=== PATIENT | female | born 1975 | race African-American/Black ===

== ENCOUNTER 2016-10-21 09:08 | Day surgery (SDC) | payer BC ==
[~2016-10-21] VITALS: Ht 157.5 cm; Wt 133.4 kg
[~2016-10-21 09:08] MED LIST: AMLO5TAB2 PO; FERR-26 PO; HYDROmorphone 2 MG/ML VIAL IV PRN; IV RINGERS,LACTATED 1000ML 1,000 ML IV SCH; LIDOCAINE 1% 1 ML SYRINGE. ID PRN; MEPERIDINE PF 25 MG/ML VIAL. IV PRN; MIDAZOLAM HCL/PF 2 MG/2 ML VIAL. IV PRN; MORPHINE SULFATE 4 MG/ML DISP.SYRIN. IV PRN; PROCHLORPERAZINE 10 MG/2 ML VIAL. IV PRN; diphenhydrAMINE 50 MG/ML VIAL IV PRN; fentaNYL PF VIAL 100 MCG/2 ML VIAL IV PRN
[2016-10-21 09:45] LABS: NEG OBC UR NEG; POS OBC UR POS
[2016-10-21] MEDS ORDERED: fentaNYL PF VIAL 100 MCG/2 ML VIAL ONE (10:37)
[2016-10-21] MEDS ORDERED: MIDAZOLAM HCL/PF 2 MG/2 ML VIAL. ONE (10:37)
[2016-10-21] MEDS ORDERED: ONDANSETRON PF 4 MG/2 ML VIAL. ONE (10:38)
[2016-10-21] MEDS ORDERED: SEVOFLURANE 31 TO 60 MINUTES. IH ONE (10:38)
[2016-10-21] MEDS ORDERED: LIDOCAINE 2% PF Vial for OR 5 ML VIAL. ONE (10:38)
[2016-10-21] MEDS ORDERED: PROPOFOL 20 ML IV ONE (10:38)
[2016-10-21] MEDS ORDERED: DEXAMETHASONE SOD PHOS 20 MG/5 ML VIAL. ONE (10:38)
[2016-10-21] MEDS ORDERED: FAMOTIDINE 20 MG/2 ML VIAL ONE (10:40)
--- NOTE | 2016-10-21 11:51 | PDOC ---
BRIEF OPERATIVE NOTE Pre-Op Diagnosis Menorrhagia Post-Op Diagnosis Same Procedure Performed Endometrial Ablation [facility] Surgeon Dr. Holland Anesthesia Type: General Blood Loss 10 ml Specimens Obtained none Findings 12 wk size uterus with thickened endometrial lining Complications none Additional Remarks Pt. LUIZ Suarez Jr, MD Oct 21, 2016 11:51
--- NOTE | 2016-10-21 11:52 | DISCH ---
DISCHARGE INSTRUCTIONS Condition on Discharge Condition on Discharge: Stable Activity After Discharge Activity Instructions for Disc: Activity as tolerated Lifting Instructions after Dis: No heavy lifting Driving Instructions after Dis: Do not drive today Diet after Discharge Diet after Discharge: Regular Contacting the DRPatrick after DC Call your doctor for: Concerns you may have Follow-Up Follow up with: Dr. Holland in 1 wk. LUIZ HOLLAND Jr, MD Oct 21, 2016 11:52
[2016-10-21] MEDS: fentaNYL PF VIAL 100 MCG/2 ML VIAL IV PRN ×3 (12:12→12:55)
[2016-10-21] MEDS ORDERED: oxyCODONE/APAP 5/325 1 TAB TABLET PO PRN (13:30)
[2016-10-21 14:10] VITALS: BP 141/84
--- NOTE | 2016-10-21 14:11 | OP ---
DATE OF SURGERY: 10/21/2016 PREOPERATIVE DIAGNOSIS: Menorrhagia. POSTOPERATIVE DIAGNOSIS: Menorrhagia. PROCEDURE: Endometrial ablation via HTA system. SURGEON: Luiz Holland M.D. ANESTHESIA: GETA. ESTIMATED BLOOD LOSS: 10 mL. COMPLICATIONS: None. FINDINGS: A 12-week size uterus with thickened endometrial lining. SUMMARY: A 41-year-old patient, unresponsive to medical treatment for menorrhagia. The patient was counseled on endometrial ablation, risks, benefits and expectations and voiced a clear understanding to proceed. DESCRIPTION OF PROCEDURE: The patient was taken to surgery suite and placed in dorsolithotomy position. She was prepped with Betadine solution and draped in a sterile fashion. After adequate anesthesia, weighted speculum and curved Tremaine placed vaginally and anterior lip of the cervix grasped with single tooth tenaculum. Cervix was dilated up to size 8 using Hegar dilators. The HTA hysteroscope was placed. The endometrium was homogenous with thickened lining and endometrial ablation took place over 10 minutes with a T-max of 90 degree Celsius. The pinkish tissue transitioned to whitish tissue homogeneously. The scope was removed. The single tooth tenaculum caused mild laceration of the anterior lip of the cervix, which was repaired with 2-0 Vicryl suture in a [id number] manner. It was then hemostatic. The weighted speculum was removed. The patient tolerated the procedure well and was taken to recovery in stable condition. Sponge and needle counts correct x 3. LUIZ HOLLAND MD DR: LANCE/deann JOB#: [id number] / [id number]
== END 2016-10-21 14:19 | disposition home or self-care (01) ==
LOC: SURG 09:08
PROVIDERS: ATTEND Obstetrics & Gynecology
DX: N92.0 Excessive and frequent menstruation with regular cycle (principal); I10 Essential (primary) hypertension; E11.9 Type 2 diabetes mellitus without complications; D64.9 Anemia, unspecified; Z87.39 Personal history of other diseases of the musculoskeletal system and connective tissue
CPT/HCPCS: 58563; 81025; 82962; J0780; J1100; J2250; J2405; J2704; J3010; S0028

== ENCOUNTER → 2018-02-28 | Outpatient (CLI) | payer OTHER ==
[~2018-02-28] MED LIST changes: -AMLO5TAB2 PO; +AMLO5TAB7 PO; -FERR-26 PO; +FERR325T14 PO; -HYDROmorphone 2 MG/ML VIAL IV PRN; -IV RINGERS,LACTATED 1000ML 1,000 ML IV SCH; -LIDOCAINE 1% 1 ML SYRINGE. ID PRN; -MEPERIDINE PF 25 MG/ML VIAL. IV PRN; -MIDAZOLAM HCL/PF 2 MG/2 ML VIAL. IV PRN; -MORPHINE SULFATE 4 MG/ML DISP.SYRIN. IV PRN; -PROCHLORPERAZINE 10 MG/2 ML VIAL. IV PRN; -diphenhydrAMINE 50 MG/ML VIAL IV PRN; -fentaNYL PF VIAL 100 MCG/2 ML VIAL IV PRN
--- NOTE | 2018-02-28 17:17 | RAD ---
Pelvic ultrasound, 02/28/2018: HISTORY: Amenorrhea Transabdominal and transvaginal scans were obtained. The uterus is mildly enlarged measuring 12.9 x 5.6 x 4.7 cm. This is likely related to the multiple previous pregnancies. A normal central uterine echo is evident measuring approximately 3 mm in thickness. No uterine mass is seen. The ovaries are of normal size. There is a 2.8 cm simple cyst in the left ovary. The adnexal structures are otherwise unremarkable. No free fluid is evident in the pelvis. IMPRESSION: 1. Mild uterine enlargement. 2. Small left ovarian cyst. Electronically signed by: Oneil Pope MD (02/28/2018 5:15 PM) [facility]
== END | disposition home or self-care (01) ==
LOC: US 15:34
PROVIDERS: ATTEND Physician Assistant Surgical
DX: N83.292 Other ovarian cyst, left side (principal); N85.2 Hypertrophy of uterus
CPT/HCPCS: 76830; 76856

== ENCOUNTER 2021-07-15 02:35 | Observation (INO) | payer OTHER ==
[~2021-07-15 02:35] MED LIST changes: +AMLO-186 PO; -AMLO5TAB7 PO
[2021-07-15] MEDS ORDERED: IV RINGERS,LACTATED 1000ML 1,000 ML IV SCH (03:00)
[2021-07-15] MEDS ORDERED: 0.9 % SODIUM CHLORIDE 10 ML DISP.SYRIN. IV PRN (03:00)
[2021-07-15] MEDS ORDERED: BETAMET ACET&NA PHOS 30 MG/5 ML VIAL. IM ONE (03:30)
[2021-07-15 03:40] LABS: BASO % 0 % (0-3); EOS # 0.1 x10^3/uL (0.0-0.7); EOS % 2 % (0-3); HEMATOCRIT 32.2 % (36.0-47.0); HEMOGLOBIN 10.8 g/dL (12.0-15.5); LYMPH % 28 % (24-48); MEAN CORPUSCULAR HEMOGLOBIN 33 pg (25-35); MEAN CORPUSCULAR HGB CONC 34 g/dL (31-37); MEAN CORPUSCULAR VOLUME 98 fL (79-100); MONO # 0.3 x10^3/uL (0.0-1.1); MONO % 5 % (0-9); NEUT # 4.5 x10^3/uL (1.8-7.7); NEUT % 65 % (31-73); PLATELET COUNT 231 x10^3/uL (140-400); RED BLOOD COUNT 3.28 x10^6/uL (3.50-5.40); RED CELL DISTRIBUTION WIDTH 13.5 % (11.5-14.5); WHITE BLOOD COUNT 6.9 x10^3/uL (4.0-11.0)
--- NOTE | 2021-07-15 03:50 | RAD ---
EXAM: US OB Limited CLINICAL HISTORY: vaginal bleeding. COMPARISON: None. TECHNIQUE: Limited transabdominal ultrasound of the uterus was performed. FINDINGS: NUMBER: Single POSITION: cephalic PLACENTA: Location: Posterior wall Placentation: Complex fluid surrounding surrounding placenta. Placenta grade: 2 ANATOMY: HEART RATE: 139 bpm Current measurements are: BPD -7.0 cm = 28 weeks and 2 days HC -25.4 cm = 27 weeks and 4 days AC - 22.1 cm = 26 weeks and 4 days FL - 5.0 cm = 27 weeks and 0 days HC/AC ratio: 1.1 MATERNAL ANATOMY UTERUS: No abnormalities seen. OVARIES/ADNEXAE: Not interrogated CUL-DE-SAC: No fluid. HISTORICAL DATES Last menstrual period: 01/03/2021 CALCULATED DATES ADA (LMP): 10/10/2021 EGA (US): 27 weeks and 3 days ADA (US): 10/11/2021 IMPRESSION: 1. Single live intrauterine with estimated gestational age is 27 weeks and 3 days. 2. Posterior placenta. Large amount of complex fluid surrounding placenta, suspicious for placenta ab ruption. FOR INTERNAL CODING PURPOSES Critical result: Findings discussed with Bogdan at 07/15/2021 3:45 AM. RESULT CODE: (C) Electronically signed by: Nathaniel Darby MD (07/15/2021 3:48 AM) [facility]
[2021-07-15 03:54] LABS: ALBUMIN 2.8 g/dL (3.4-5.0); ALBUMIN/GLOBULIN RATIO 0.7 (1.0-1.7); CALCIUM 9.3 mg/dL (8.5-10.1); CREATININE 0.9 mg/dL (0.6-1.0); GFR 82.3; TOTAL BILIRUBIN 0.3 mg/dL (0.2-1.0); URIC ACID 4.1 mg/dL (2.6-6.0)
[2021-07-15] MEDS ORDERED: MAGNESIUM SULFATE 4GM 100 ML IV ONE (04:00)
[2021-07-15] MEDS ORDERED: MAGNESIUM SULFATE 2GM 50 ML IV ONE (04:00)
[2021-07-15] MEDS ORDERED: MAGNESIUM SULFATE 20GM 500 ML IV SCH (04:00)
--- NOTE | 2021-07-15 04:22 | PDOC1 ---
[facility] H&P Date of Admission: Date of Admission: Jul 15, 2021 at 02:35 History of Present Illness: EDC: 10/10/21 LMP: 01/03/21 45y @ 27.4 by L=8 who presented to L&D with VB. The pt woke up this am with abd pain around 1 am. She felt that she had to void and when she looked she realized it was blood. Since that time she has been having constant gas pain. She arrived to L&D at 0236. When she arrived an u/s was ordered by the Patient Coordinator Front Desk. The u/s revealed a suspected abruption. I was called at 0316 for eval and tx. The pt is followed by PETER ALCANTARA for AMA, DM, and cHTN. She states that she was taken off her HTN meds when she was found to have a positive test. She is on Metformin for her DM. She was last seen 06/30/21. After reviewing her FHT and u/s, the baby appear stable for transfer. The pt was informed that it appeared that she may have an abruption, but would benefit from transfer due to her early gestation. Explained that if the FHT became concerning we would have to move toward delivery prior to transfer. PMH: cHTN, DM PSH: Gastric bypass, Endometrial ablation Meds: ASA, Metformin All: Codiene OBHx: TSVD x 3, SAB x 1 SH: no tob, no EtOH FH: HTN, DM Medications: Meds: Current Medications Medications (Trade) Dose Ordered Sig/Kit Route PRN Reason Start Time Stop Time Status Last Admin Dose Admin Ringer's Solution 1,000 ml @ 150 mls/hr [id number] IV 07/15/21 03:00 07/15/21 03:15 Betamethasone Sodium Phosphate (Celestone Soluspan) 12 mg 1X ONCE IM 07/15/21 03:30 07/15/21 03:31 DC 07/15/21 03:38 Allergies: Coded Allergies: No Known Drug Allergies (Unverified , 10/21/16) Physical Exam: PE: GENERAL: No apparent distress. Alert and oriented. HEENT: Head normocephalic, atraumatic. NECK: Supple LUNGS: Clear to auscultation. HEART: RRR, S1, S2 present, pulses intact ABDOMEN: Soft, positive bowel sounds. EXTREMITIES: No cyanosis or edema. NEUROLOGIC: Normal speech, normal tone PSYCHIATRIC: Normal affect, normal mood. SKIN: No ulceration. FHT: 150s no acels/no decels/min-modLTV [place]: quiet SVE: Ft/Th/H Labs: Laboratory Tests Test 07/15/21 03:30 White Blood Count 6.9 x10^3/uL (4.0-11.0) Red Blood Count 3.28 x10^6/uL (3.50-5.40) L Hemoglobin 10.8 g/dL (12.0-15.5) L Hematocrit 32.2 % (36.0-47.0) L Mean Corpuscular Volume 98 fL (79-100) Mean Corpuscular Hemoglobin 33 pg (25-35) Mean Corpuscular Hemoglobin Concent 34 g/dL (31-37) Red Cell Distribution Width 13.5 % (11.5-14.5) Platelet Count 231 x10^3/uL (140-400) Neutrophils (%) (Auto) 65 % (31-73) Lymphocytes (%) (Auto) 28 % (24-48) Monocytes (%) (Auto) 5 % (0-9) Eosinophils (%) (Auto) 2 % (0-3) Basophils (%) (Auto) 0 % (0-3) Neutrophils # (Auto) 4.5 x10^3/uL (1.8-7.7) Lymphocytes # (Auto) 2.0 x10^3/uL (1.0-4.8) Monocytes # (Auto) 0.3 x10^3/uL (0.0-1.1) Eosinophils # (Auto) 0.1 x10^3/uL (0.0-0.7) Basophils # (Auto) 0.0 x10^3/uL (0.0-0.2) Sodium Level 135 mmol/L (136-145) L Potassium Level 4.0 mmol/L (3.5-5.1) Chloride Level 102 mmol/L (98-107) Carbon Dioxide Level 20 mmol/L (21-32) L Anion Gap 13 (6-14) Blood Urea Nitrogen 12 mg/dL (7-20) Creatinine 0.9 mg/dL (0.6-1.0) Estimated GFR (Cockcroft-Gault) 82.3 BUN/Creatinine Ratio 13 (6-20) Glucose Level 83 mg/dL (70-99) Uric Acid 4.1 mg/dL (2.6-6.0) Calcium Level 9.3 mg/dL (8.5-10.1) Total Bilirubin 0.3 mg/dL (0.2-1.0) Aspartate Amino Transferase (AST) 11 U/L (15-37) L Alanine Aminotransferase (ALT) 19 U/L (14-59) Alkaline Phosphatase 55 U/L (46-116) Lactate Dehydrogenase 164 U/L (81-234) Total Protein 7.0 g/dL (6.4-8.2) Albumin 2.8 g/dL (3.4-5.0) L Albumin/Globulin Ratio 0.7 (1.0-1.7) L Laboratory Tests 07/15/21 03:30 Laboratory Tests 07/15/21 03:30 Laboratory Tests 07/15/21 03:30 Assessment & Plan: A/P 45y @ 27.4 by L=8 1.) Concerns of abruption pt with constant abd pain since 0100. U/s with large amt of blood surrounding placenta. FHT reassuring for gestational age. Bleeding moderate on exam. Based FHT, exam, and gestational age pt would benefit from transfer. Discussed case with Dr. Massey at who is willing to except transfer. 2.) cHTN BP mild, on no meds throughout 3.) DM on Metformin 4.) AMA on ASA 5.) Gastric bypass 6.) Endometrial ablation 2013, first since procedure 7.) Fetus reassuring for gestational age, BMTZ @ 0338, started on Mag for neuroprotection 8.) GBS unk BELLE GOMEZ MD Jul 15, 2021 04:22
== END 2021-07-15 04:55 | disposition home or self-care (01) ==
LOC: 3 SO LND 02:35
PROVIDERS: ADMIT Obstetrics & Gynecology; ATTEND Obstetrics & Gynecology
DX: O46.92 Antepartum hemorrhage, unspecified, second trimester (principal); O24.410 Gestational diabetes mellitus in pregnancy, diet controlled; O99.844 Bariatric surgery status complicating childbirth; O09.522 Supervision of elderly multigravida, second trimester; O62.9 Abnormality of forces of labor, unspecified; Z3A.27 27 weeks gestation of pregnancy
CPT/HCPCS: 36415; 59025; 76815; 80053; 83615; 84550; 85025; 96361; 96372; 96374; G0378; G0379; J0702; J3475; J7120; 96365